=== PATIENT | male | born 1965 | race Caucasian/White ===

== ENCOUNTER 2020-09-22 10:30 | Inpatient (IN) | payer OTHER ==
[2020-09-14 15:32] VITALS: BMI 30.8
[2020-10-06] MEDS ORDERED: LOCK ITEM NR ONE (06:39)
[2020-10-06] MEDS ORDERED: PROPOFOL 20 ML ONE ×6 (07:27→11:06)
[2020-10-06] MEDS ORDERED: MIDAZOLAM HCL 2 MG/2 ML SINGLE DOSE VIAL ONE (07:36)
[2020-10-06] MEDS ORDERED: BUPIVACAINE LIPOSOME/PF (EXPAREL) 266 MG/20 ML VIAL ONE (07:36)
[2020-10-06] MEDS ORDERED: SODIUM CHLORIDE 0.9% P/F 10 ML VIAL IJ ONE (07:36)
[2020-10-06] MEDS ORDERED: ONDANSETRON 4 MG/2 ML VIAL IVPUSH PRN ×2 (07:44→12:28)
[2020-10-06] MEDS ORDERED: LACTATED RINGERS SOLUTION 1,000 ML IV SCH ×2 (07:45→12:30)
[2020-10-06] MEDS: ACETAMINOPHEN 325 MG TABLET (FP) PO SCH ×3 (07:45→20:05)
[2020-10-06] MEDS ORDERED: KETAMINE HCL 200 MG/20 ML VIAL ONE (09:10)
[2020-10-06] MEDS ORDERED: ePHEDrine SULFATE 50 MG/1 ML AMPULE ONE (09:19)
[2020-10-06] MEDS ORDERED: ONDANSETRON 4 MG/2 ML VIAL ONE (12:21)
[2020-10-06] MEDS ORDERED: MAG HYDROX/AL HYDROX/SIMETH 30 ML UNIT-DOSE CUP PO PRN (12:28)
[2020-10-06] MEDS ORDERED: KETOROLAC TROMETHAMINE 30 MG/1 ML VIAL ONE (12:32)
[2020-10-06] MEDS ORDERED: ACETAMINOPHEN 325 MG TABLET (FP) ONE (12:48)
[2020-10-06] MEDS: oxyCODONE HCL 5 MG TABLET PO PRN (14:52)
[2020-10-06] MEDS: CEFAZOLIN 2 GM/D5W 2 GM/50 ML ML IVPB SCH (17:42)
[2020-10-06] MEDS: oxyCODONE HCL 10 MG SUSTAINED ACTING TABLET PO SCH ×2 (20:00→21:14)
[2020-10-06] MEDS: ASPIRIN COATED 81 MG TABLET.EC PO SCH (21:15)
[2020-10-06] MEDS: SENNOSIDES/DOCUSATE COMBO (SENNA PLUS) TABLET (UD) PO SCH (21:15)
[2020-10-06] MEDS: CELECOXIB 200 MG CAPSULE PO SCH (21:15)
[2020-10-07] MEDS: ACETAMINOPHEN 325 MG TABLET (FP) PO SCH ×4 (02:33→21:10)
[2020-10-07] MEDS: oxyCODONE HCL 5 MG TABLET PO PRN ×2 (05:00→15:06)
[2020-10-07] MEDS: CEFAZOLIN 2 GM/D5W 2 GM/50 ML ML IVPB SCH ×2 (05:41)
[2020-10-07 07:49] LABS: HEMATOCRIT 31.5 % (35.4-49); HEMOGLOBIN 10.9 GM/dl (11.7-16.9); MCH 31.6 pg (25.7-33.7); MCHC 34.6 g/dl (32.0-35.9); MEAN CELL VOLUME 91.3 fl (80-96); MEAN PLT VOLUME 8.1 fl (7.5-11.1); PLATELET COUNT 200 K/MM3 (134-434); RBC 3.45 M/mm3 (4.00-5.60); RDW 12.5 % (11.9-15.9); WHITE BLOOD COUNT 5.9 K/mm3 (4.0-10.8)
[2020-10-07 07:51] LABS: CALCIUM 8.1 mg/dl (8.5-10); CREATININE 0.8 mg/dl (0.55-1.3)
[2020-10-07] MEDS: oxyCODONE HCL 10 MG SUSTAINED ACTING TABLET PO SCH ×2 (09:45→22:05)
[2020-10-07] MEDS: PANTOPRAZOLE 40 MG TABLET PO SCH (09:46)
[2020-10-07] MEDS: ASPIRIN COATED 81 MG TABLET.EC PO SCH ×2 (09:46→22:05)
[2020-10-07] MEDS: CELECOXIB 200 MG CAPSULE PO SCH ×2 (09:46→22:05)
[2020-10-07] MEDS: SENNOSIDES/DOCUSATE COMBO (SENNA PLUS) TABLET (UD) PO SCH ×2 (10:00→22:05)
[2020-10-07] MEDS ORDERED: SODIUM CHLORIDE 1,000 ML IV STA (11:06)
[2020-10-07] MEDS ORDERED: VANCOMYCIN HCL 1,500 MG in DEXTROSE 5%-WATER - 250 ML IVPB SCH (11:15)
[2020-10-07] MEDS ORDERED: PIPERACILLIN/TAZOB 3.375 GM 3.375 GM in DEXTROSE 5%-WATER - 50 ML IVPB SCH (11:15)
[2020-10-07] MEDS ORDERED: SODIUM CHLORIDE 1,000 ML IV SCH (11:15)
[2020-10-07 14:11] LABS: HEMOGLOBIN 11.8 GM/dl (11.7-16.9); MCH 31.7 pg (25.7-33.7); MCHC 34.7 g/dl (32.0-35.9); MEAN CELL VOLUME 91.4 fl (80-96); MEAN PLT VOLUME 7.9 fl (7.5-11.1); PLATELET COUNT 220 K/MM3 (134-434); RBC 3.73 M/mm3 (4.00-5.60); RDW 12.6 % (11.9-15.9)
[2020-10-07] MEDS: MAGNESIUM HYDROX 2400MG/30ML ORAL SUSPENSION 30 ML CUP PO PRN (22:05)
[2020-10-08] MEDS: ACETAMINOPHEN 325 MG TABLET (FP) PO SCH ×4 (01:39→19:57)
[2020-10-08] MEDS: MAGNESIUM HYDROX 2400MG/30ML ORAL SUSPENSION 30 ML CUP PO PRN (07:50)
[2020-10-08 08:08] LABS: MCH 31.5 pg (25.7-33.7); MCHC 34.3 g/dl (32.0-35.9); MEAN CELL VOLUME 91.6 fl (80-96); MEAN PLT VOLUME 8.4 fl (7.5-11.1); PLATELET COUNT 190 K/MM3 (134-434); RDW 12.7 % (11.9-15.9); WHITE BLOOD COUNT 6.3 K/mm3 (4.0-10.8)
[2020-10-08] MEDS: oxyCODONE HCL 5 MG TABLET PO PRN ×2 (08:30→17:15)
[2020-10-08] MEDS: SENNOSIDES/DOCUSATE COMBO (SENNA PLUS) TABLET (UD) PO SCH ×2 (10:16→21:26)
[2020-10-08] MEDS: CELECOXIB 200 MG CAPSULE PO SCH ×2 (10:17→21:26)
[2020-10-08] MEDS: ASPIRIN COATED 81 MG TABLET.EC PO SCH ×2 (10:17→21:26)
[2020-10-08] MEDS: PANTOPRAZOLE 40 MG TABLET PO SCH (10:17)
[2020-10-08] MEDS: oxyCODONE HCL 10 MG SUSTAINED ACTING TABLET PO SCH ×2 (10:18→21:26)
[2020-10-09] MEDS: oxyCODONE HCL 5 MG TABLET PO PRN (03:41)
[2020-10-09] MEDS: ACETAMINOPHEN 325 MG TABLET (FP) PO SCH (03:42)
[2020-10-09] MEDS: SENNOSIDES/DOCUSATE COMBO (SENNA PLUS) TABLET (UD) PO SCH ×2 (09:43→21:33)
[2020-10-09] MEDS: ASPIRIN COATED 81 MG TABLET.EC PO SCH ×2 (09:44→21:33)
[2020-10-09] MEDS: PANTOPRAZOLE 40 MG TABLET PO SCH (09:44)
[2020-10-09] MEDS: CELECOXIB 200 MG CAPSULE PO SCH ×2 (09:44→21:33)
[2020-10-09] MEDS ORDERED: oxyCODONE HCL 10 MG SUSTAINED ACTING TABLET PO ONE (10:44)
[2020-10-09] MEDS: ACETAMINOPHEN 325 MG TABLET (FP) PO PRN ×2 (10:55→18:05)
[2020-10-10] MEDS: ACETAMINOPHEN 325 MG TABLET (FP) PO PRN (06:31)
[2020-10-10 09:59] VITALS: BP 132/72; PULSE 96; TEMP 98.7
[2020-10-10] MEDS: SENNOSIDES/DOCUSATE COMBO (SENNA PLUS) TABLET (UD) PO SCH (10:41)
[2020-10-10] MEDS: ASPIRIN COATED 81 MG TABLET.EC PO SCH (10:41)
[2020-10-10] MEDS: PANTOPRAZOLE 40 MG TABLET PO SCH (10:41)
[2020-10-10] MEDS: CELECOXIB 200 MG CAPSULE PO SCH (10:41)
== END 2020-10-10 14:30 | disposition home or self-care (01) | DRG 302 ==
LOC: FM/S 10-06 06:06
PROVIDERS: ADMIT Orthopaedic Surgery Orthopaedic Surgery of the Spine; ATTEND Orthopaedic Surgery Orthopaedic Surgery of the Spine
PROC: 0SBC0ZZ Excision of Right Knee Joint, Open Approach (ICD-10-PCS; 2020-10-06)
PROC: 0JBN0ZZ Excision of Right Lower Leg Subcutaneous Tissue and Fascia, Open Approach (ICD-10-PCS; 2020-10-06)
PROC: 0SWC0JZ Revision of Synthetic Substitute in Right Knee Joint, Open Approach (ICD-10-PCS; principal; 2020-10-06 09:36)
DX: T84.032A Mechanical loosening of internal right knee prosthetic joint, initial encounter (principal); Y83.9 Surgical procedure, unspecified as the cause of abnormal reaction of the patient, or of later complication, without mention of misadventure at the time of the procedure
CPT/HCPCS: 36415; 73560-TC-RT-FY; 80048; 85027; 88300-TC; 88305-TC; 88311-TC; 94760; 97010-GP; 97116-GP; 97162-GP